=== PATIENT | male | born 1935 | race Caucasian/White ===

== ENCOUNTER 2021-10-02 12:36 | Inpatient (IN) | payer OTHER ==
[~2021-10-02] VITALS: Ht 157.5 cm; Wt 55.8 kg
[2021-10-02] MEDS ORDERED: VANCOMYCIN 1 G PREMIX 200 ML IV ONE (12:45)
[2021-10-02] MEDS ORDERED: AMIODARONE HCL 900 MG in DEXT 5% WATER 500 ML IV ONE (12:45)
[2021-10-02] MEDS ORDERED: PIPERACILLIN/TAZ 3.375G PREMIX 50 ML IV ONE (12:45)
[2021-10-02] MEDS ORDERED: AMIODARONE HCL 150 MG in DEXT 5% WATER 100 ML IV ONE (12:45)
[2021-10-02] MEDS ORDERED: DEXAMETHASONE 10 MG/ML VIAL IV ONE (12:45)
[2021-10-02] MEDS ORDERED: ALBUTEROL (0.083%) 2.5MG/3ML NEB HHN STA (12:47)
[2021-10-02] MEDS ORDERED: IPRATROPIUM BROMIDE (0.02%) 0.5MG/2.5ML NEB HHN STA (12:47)
[2021-10-02] MEDS ORDERED: SODIUM CHLORIDE 0.9% 250 ML IV ONE (13:00)
[2021-10-02 13:04] LABS: HEMATOCRIT. 33.8 % (42.0-52.0); HEMOGLOBIN. 11.7 g/dL (14.0-18.0); MEAN CORPUSCULAR HEMOGLOBIN 34.6 pg (28.0-32.0); MEAN CORPUSCULAR VOLUME 100.3 fL (80.0-94.0); MEAN PLATELET VOLUME 8.5 fl (7.4-10.4); PLATELET 293 x1000/uL (130-400); RED BLOOD CELL COUNT 3.37 mill/uL (4.7-6.1); RED CELL DISTRIBUTION WIDTH 13.8 % (11.6-14.6)
[2021-10-02 13:12] LABS: CHLORIDE 102 mEq/L (98-107)
[2021-10-02 13:22] LABS: INR 1.2; PROTHROMBIN TIME 13.1 sec (9.6-11.0)
[2021-10-02 13:41] LABS: NUCLEATED RED BLOOD CELLS 6 /100 WBC
[2021-10-02 13:42] LABS: PLATELET ESTIMATE NORMAL
[2021-10-02 14:31] LABS: BG BASE EXCESS -4.2 mmol/L (-2.0-2.0); BG CARBOXYHEMOGLOBIN 0.3 % (0.5-1.5); BG DEOXYHEMOGLOBIN 1.8 % (0.0-5.0); BG FRACTION INSPIRED OXYGEN 100; BG HCO3 ACT 17.8 mmol/L (22.0-26.0); BG METHEMOGLOBIN 0.1 % (0.0-1.5); BG OXYGEN SATURATION 98.2 % (92.0-98.5); BG OXYHEMOGLOBIN 97.8 % (94.0-97.0); BG PCO2 23.9 mmHg (35.0-45.0); BG PH 7.489 (7.350-7.450); BG PO2 134.6 mmHg (75.0-100.0); BG SAMPLE SITE RIGHT BRACHIAL; BG VENT MODE MASK - BIPAP
[2021-10-02] MEDS ORDERED: ENOXAPARIN 60MG/0.6ML SYR SUBCUT ONE (15:15)
[2021-10-02] MEDS: FUROSEMIDE 20MG/2ML VIAL IVP SCH (15:57)
[2021-10-02] MEDS: ASPIRIN 81MG TABLET PO SCH (15:57)
[2021-10-02] MEDS: ENOXAPARIN 60MG/0.6ML SYR SUBCUT SCH (15:58)
[2021-10-02] MEDS ORDERED: DEXTROSE 50% WATER 50ML SYRINGE IV PRN (16:00)
[2021-10-02] MEDS: FAMOTIDINE 20MG/2ML VIAL IV SCH (16:00)
[2021-10-02] MEDS ORDERED: ONDANSETRON HCL 4MG/2ML INJ IV PRN (16:00)
[2021-10-02] MEDS ORDERED: ACETAMINOPHEN 650MG SUPP PR PRN (16:00)
[2021-10-02] MEDS ORDERED: LORAZEPAM 0.5MG TABLET PO PRN (16:00)
[2021-10-02] MEDS ORDERED: IPRATROPIUM/ALBUTEROL 0.5-3(2.5)MG/3ML NEB NEB PRN (16:00)
[2021-10-02] MEDS: IPRATROPIUM/ALBUTEROL 0.5-3(2.5)MG/3ML NEB NEB SCH (16:00)
[2021-10-02] MEDS ORDERED: NA PHOS,M-B/NA PHOS,DI-BA ENEMA 118ML PR PRN (16:00)
[2021-10-02] MEDS: DEXAMETHASONE 10 MG/ML VIAL IV SCH (16:00)
[2021-10-02] MEDS ORDERED: DIGOXIN 500MCG/2ML AMP IV NR (16:30)
[2021-10-02 16:56] LABS: CLARITY URINE CLEAR (CLEAR); COLOR URINE DARK YELLOW (YELLOW); KETONES URINE TRACE (NEGATIVE); LEUKOCYTE ESTERASE URINE TRACE (NEGATIVE); NITRITE URINE NEGATIVE (NEGATIVE); OCCULT BLOOD URINE NEGATIVE (NEGATIVE); PROTEIN URINE 1+ (NEGATIVE); SPECIFIC GRAVITY URINE 1.021 (1.005-1.030)
[2021-10-02] MEDS: INSULIN LISPRO 100 UNITS/ML SUBCUT SCH ×2 (17:10→21:39)
[2021-10-02] MEDS: BLOOD SUGAR DIAGNOSTIC STRIP TEST SCH ×2 (17:10→21:39)
[2021-10-02] MEDS ORDERED: PIPERACILLIN/TAZOBACTAM 3.375 G in DEXTROSE 5% WATER 50 ML IV SCH (21:00)
[2021-10-02] MEDS ORDERED: DIGOXIN 250MCG TABLET PO NR (22:30)
[2021-10-02 23:11] LABS: CREATINE KINASE MB FRACTION 14.6 ng/mL (0.5-3.6)
[2021-10-03] VITALS (39 sets, daily range): BP systolic 97–149; BP diastolic 49–88
[2021-10-03] MEDS: IPRATROPIUM/ALBUTEROL 0.5-3(2.5)MG/3ML NEB NEB SCH ×5 (00:49→21:12)
[2021-10-03] MEDS: BLOOD SUGAR DIAGNOSTIC STRIP TEST SCH ×4 (06:28→21:49)
[2021-10-03] MEDS: AMIODARONE HCL 900 MG in DEXT 5% WATER 482 ML IV PRN ×2 (06:38→07:44)
[2021-10-03] MEDS: INSULIN LISPRO 100 UNITS/ML SUBCUT SCH ×4 (06:39→21:00)
[2021-10-03 07:29] LABS: BG BASE EXCESS -2.5 mmol/L (-2.0-2.0); BG CARBOXYHEMOGLOBIN 0.3 % (0.5-1.5); BG DEOXYHEMOGLOBIN 0.7 % (0.0-5.0); BG HCO3 ACT 19.9 mmol/L (22.0-26.0); BG METHEMOGLOBIN 0.1 % (0.0-1.5); BG OXYGEN SATURATION 99.3 % (92.0-98.5); BG OXYHEMOGLOBIN 98.9 % (94.0-97.0); BG PCO2 27.3 mmHg (35.0-45.0); BG SAMPLE SITE RIGHT RADIAL; BG TOTAL HEMOGLOBIN 11.4 g/dL (12.0-18.0); BG VENT MODE MASK - BIPAP
[2021-10-03 08:49] LABS: CREATINE KINASE MB FRACTION 10.4 ng/mL (0.5-3.6)
[2021-10-03] MEDS ORDERED: PIPERACILLIN/TAZOBACTAM 3.375 G in DEXTROSE 5% WATER 50 ML IV SCH (09:00)
[2021-10-03] MEDS ORDERED: AMIODARONE HCL 200 MG TABLET PO SCH ×2 (09:30→21:00)
[2021-10-03 09:35] LABS: HEMATOCRIT. 33.2 % (42.0-52.0); HEMOGLOBIN. 11.1 g/dL (14.0-18.0); MEAN CORPUSCULAR HEMOGLOBIN 31.8 pg (28.0-32.0); MEAN CORPUSCULAR VOLUME 95.1 fL (80.0-94.0); MEAN PLATELET VOLUME 9.3 fl (7.4-10.4); PLATELET 248 x1000/uL (130-400); RED CELL DISTRIBUTION WIDTH 14.1 % (11.6-14.6)
[2021-10-03] MEDS ORDERED: NALOXONE HCL 0.4MG/ML VIAL IV PRN (09:45)
[2021-10-03] MEDS: ASPIRIN 81MG TABLET PO SCH (10:08)
[2021-10-03] MEDS: FAMOTIDINE 20MG/2ML VIAL IV SCH (10:08)
[2021-10-03] MEDS: FUROSEMIDE 20MG/2ML VIAL IVP SCH (10:13)
[2021-10-03] MEDS: DEXAMETHASONE 10 MG/ML VIAL IV SCH (10:13)
[2021-10-03 10:58] LABS: NUCLEATED RED BLOOD CELLS 1 /100 WBC; PLATELET ESTIMATE NORMAL
[2021-10-03] MEDS: DILTIAZEM HCL 90MG TABLET PO SCH ×3 (12:59→23:42)
[2021-10-03] MEDS: VANCOMYCIN 500 MG PREMIX 100 ML IV SCH (13:46)
[2021-10-03] MEDS: ENOXAPARIN 60MG/0.6ML SYR SUBCUT SCH (15:24)
[2021-10-03] MEDS: PIPERACILLIN/TAZOBACTAM 3.375 G in DEXTROSE 5% WATER 50 ML IV SCH ×2 (16:36→22:00)
[2021-10-04] VITALS (66 sets, daily range): BP systolic 96–160; BP diastolic 50–108
[2021-10-04] MEDS: IPRATROPIUM/ALBUTEROL 0.5-3(2.5)MG/3ML NEB NEB SCH ×2 (02:27→21:41)
[2021-10-04] MEDS: DILTIAZEM HCL 90MG TABLET PO SCH ×3 (06:00→17:52)
[2021-10-04] MEDS: BLOOD SUGAR DIAGNOSTIC STRIP TEST SCH ×4 (06:32→21:00)
[2021-10-04] MEDS: PIPERACILLIN/TAZOBACTAM 3.375 G in DEXTROSE 5% WATER 50 ML IV SCH ×3 (06:34→22:41)
[2021-10-04] MEDS: INSULIN LISPRO 100 UNITS/ML SUBCUT SCH ×4 (06:35→21:00)
[2021-10-04 06:36] LABS: HEMATOCRIT. 32.2 % (42.0-52.0); HEMOGLOBIN. 10.7 g/dL (14.0-18.0); MEAN CORPUSCULAR HEMOGLOBIN 31.5 pg (28.0-32.0); MEAN CORPUSCULAR VOLUME 94.7 fL (80.0-94.0); MEAN PLATELET VOLUME 9.3 fl (7.4-10.4); PLATELET 236 x1000/uL (130-400); RED CELL DISTRIBUTION WIDTH 14.1 % (11.6-14.6)
[2021-10-04] MEDS: FAMOTIDINE 20MG/2ML VIAL IV SCH (08:09)
[2021-10-04] MEDS: DEXAMETHASONE 10 MG/ML VIAL IV SCH (08:09)
[2021-10-04] MEDS: FUROSEMIDE 20MG/2ML VIAL IVP SCH (08:10)
[2021-10-04] MEDS: ASPIRIN 81MG TABLET PO SCH (08:10)
[2021-10-04] MEDS ORDERED: LIDOCAINE HCL 1% 10 MG/ML 10ML VIAL ONE (08:18)
[2021-10-04 08:51] LABS: BG BASE EXCESS 0.9 mmol/L (-2.0-2.0); BG CARBOXYHEMOGLOBIN 0.3 % (0.5-1.5); BG DEOXYHEMOGLOBIN 5.8 % (0.0-5.0); BG FRACTION INSPIRED OXYGEN 40; BG HCO3 ACT 22.7 mmol/L (22.0-26.0); BG METHEMOGLOBIN 0.2 % (0.0-1.5); BG OXYGEN SATURATION 94.2 % (92.0-98.5); BG OXYHEMOGLOBIN 93.7 % (94.0-97.0); BG PCO2 27.5 mmHg (35.0-45.0); BG PH 7.535 (7.350-7.450); BG PO2 69.4 mmHg (75.0-100.0); BG SAMPLE SITE RIGHT RADIAL; BG TOTAL HEMOGLOBIN 10.8 g/dL (12.0-18.0); BG VENT MODE MASK - BIPAP
[2021-10-04] MEDS: VANCOMYCIN 500 MG PREMIX 100 ML IV SCH (13:31)
[2021-10-04] MEDS: ENOXAPARIN 60MG/0.6ML SYR SUBCUT SCH (14:51)
[2021-10-04 17:51] LABS: NUCLEATED RED BLOOD CELLS 5 /100 WBC; PLATELET ESTIMATE NORMAL
[2021-10-05] VITALS (66 sets, daily range): BP systolic 103–174; BP diastolic 46–127
[2021-10-05] MEDS: DILTIAZEM HCL 90MG TABLET PO SCH ×4 (01:01→17:44)
[2021-10-05] MEDS: IPRATROPIUM/ALBUTEROL 0.5-3(2.5)MG/3ML NEB NEB SCH ×4 (02:03→21:11)
[2021-10-05] MEDS: INSULIN LISPRO 100 UNITS/ML SUBCUT SCH ×4 (06:35→22:12)
[2021-10-05] MEDS: BLOOD SUGAR DIAGNOSTIC STRIP TEST SCH ×4 (06:35→22:00)
[2021-10-05] MEDS: PIPERACILLIN/TAZOBACTAM 3.375 G in DEXTROSE 5% WATER 50 ML IV SCH ×3 (06:47→21:59)
[2021-10-05 08:17] LABS: BG BASE EXCESS 4.1 mmol/L (-2.0-2.0); BG CARBOXYHEMOGLOBIN 0.3 % (0.5-1.5); BG DEOXYHEMOGLOBIN 5.3 % (0.0-5.0); BG FRACTION INSPIRED OXYGEN 40; BG HCO3 ACT 25.4 mmol/L (22.0-26.0); BG METHEMOGLOBIN 0.3 % (0.0-1.5); BG OXYGEN SATURATION 94.7 % (92.0-98.5); BG OXYHEMOGLOBIN 94.1 % (94.0-97.0); BG PCO2 28.2 mmHg (35.0-45.0); BG PH 7.573 (7.350-7.450); BG PO2 69.9 mmHg (75.0-100.0); BG SAMPLE SITE RIGHT RADIAL; BG TOTAL HEMOGLOBIN 12.3 g/dL (12.0-18.0); BG TOTAL RESPIRATORY RATE 32 b/min; BG VENT MODE MASK - BIPAP
[2021-10-05] MEDS: DEXAMETHASONE 10 MG/ML VIAL IV SCH (08:33)
[2021-10-05] MEDS: FAMOTIDINE 20MG/2ML VIAL IV SCH (08:33)
[2021-10-05] MEDS: ASPIRIN 81MG TABLET PO SCH (08:33)
[2021-10-05] MEDS: FUROSEMIDE 20MG/2ML VIAL IVP SCH (08:34)
[2021-10-05 08:36] LABS: HEMATOCRIT. 36.2 % (42.0-52.0); HEMOGLOBIN. 11.9 g/dL (14.0-18.0); MEAN CORPUSCULAR HEMOGLOBIN 29.7 pg (28.0-32.0); MEAN CORPUSCULAR VOLUME 90.9 fL (80.0-94.0); MEAN PLATELET VOLUME 9.1 fl (7.4-10.4); PLATELET 206 x1000/uL (130-400); RED BLOOD CELL COUNT 3.99 mill/uL (4.7-6.1); RED CELL DISTRIBUTION WIDTH 14.3 % (11.6-14.6)
[2021-10-05] MEDS ORDERED: POTASSIUM CHLORIDE INJ 40 MEQ in DEXT 5% WATER 250 ML IV ONE ×2 (08:45→09:00)
[2021-10-05 09:03] LABS: NUCLEATED RED BLOOD CELLS 2 /100 WBC
[2021-10-05 09:05] LABS: PLATELET ESTIMATE NORMAL
[2021-10-05] MEDS: LORAZEPAM 2MG/ML CPJ IV PRN ×2 (09:33→18:01)
[2021-10-05] MEDS: KCL 20MEQ/100ML PREMIX 100 ML IV SCH ×2 (10:15→12:31)
[2021-10-05] MEDS: VANCOMYCIN 750 MG PREMIX 150 ML IV SCH (12:31)
[2021-10-05] MEDS ORDERED: LORAZEPAM 2MG/ML CPJ IV NR (13:11)
[2021-10-05] MEDS: ENOXAPARIN 60MG/0.6ML SYR SUBCUT SCH (14:53)
[2021-10-06] VITALS (37 sets, daily range): BP systolic 108–164; BP diastolic 59–103
[2021-10-06] MEDS: ACETAMINOPHEN 325MG TABLET PO PRN (01:53)
[2021-10-06] MEDS: DILTIAZEM HCL 90MG TABLET PO SCH ×4 (01:53→18:40)
[2021-10-06] MEDS: IPRATROPIUM/ALBUTEROL 0.5-3(2.5)MG/3ML NEB NEB SCH ×3 (02:00→13:53)
[2021-10-06] MEDS: GUAIFENESIN 200MG/10ML SUGAR FREE UDC PO PRN (02:30)
[2021-10-06] MEDS: DIPHENHYDRAMINE 50MG/ML VIAL IV PRN ×2 (02:30→21:42)
[2021-10-06] MEDS: MAGNESIUM/ALUMINUM HYDROXIDE/SIMETHICONE 30ML UDC PO PRN (02:31)
[2021-10-06] MEDS: HYDROCODONE/ACETAMINOPHEN 5/325MG TABLET PO PRN ×3 (02:32→21:43)
[2021-10-06] MEDS: BLOOD SUGAR DIAGNOSTIC STRIP TEST SCH ×4 (06:18→21:48)
[2021-10-06] MEDS: INSULIN LISPRO 100 UNITS/ML SUBCUT SCH ×4 (06:18→21:00)
[2021-10-06] MEDS: PIPERACILLIN/TAZOBACTAM 3.375 G in DEXTROSE 5% WATER 50 ML IV SCH ×3 (06:19→21:42)
[2021-10-06] MEDS: VANCOMYCIN 750 MG PREMIX 150 ML IV SCH (06:21)
[2021-10-06 06:26] LABS: HEMATOCRIT. 34.1 % (42.0-52.0); HEMOGLOBIN. 12.1 g/dL (14.0-18.0); MEAN CORPUSCULAR HEMOGLOBIN 36.2 pg (28.0-32.0); MEAN CORPUSCULAR VOLUME 101.7 fL (80.0-94.0); PLATELET 188 x1000/uL (130-400); RED BLOOD CELL COUNT 3.35 mill/uL (4.7-6.1); RED CELL DISTRIBUTION WIDTH 14.3 % (11.6-14.6)
[2021-10-06 06:33] LABS: CHLORIDE 113 mEq/L (98-107)
[2021-10-06 08:10] LABS: NUCLEATED RED BLOOD CELLS 4 /100 WBC
[2021-10-06 08:11] LABS: PLATELET ESTIMATE NORMAL
[2021-10-06 08:45] LABS: BG BASE EXCESS 3.8 mmol/L (-2.0-2.0); BG CARBOXYHEMOGLOBIN 0.3 % (0.5-1.5); BG DEOXYHEMOGLOBIN 2.8 % (0.0-5.0); BG FRACTION INSPIRED OXYGEN 40; BG HCO3 ACT 26.3 mmol/L (22.0-26.0); BG METHEMOGLOBIN 0.3 % (0.0-1.5); BG OXYGEN SATURATION 97.2 % (92.0-98.5); BG OXYHEMOGLOBIN 96.6 % (94.0-97.0); BG PO2 92.2 mmHg (75.0-100.0); BG SAMPLE SITE RIGHT BRACHIAL; BG TOTAL RESPIRATORY RATE 19 b/min; BG VENT MODE MASK - BIPAP
[2021-10-06] MEDS: DEXAMETHASONE 10 MG/ML VIAL IV SCH (08:50)
[2021-10-06] MEDS: FUROSEMIDE 20MG/2ML VIAL IVP SCH (08:51)
[2021-10-06] MEDS: FAMOTIDINE 20MG/2ML VIAL IV SCH (08:51)
[2021-10-06] MEDS: ASPIRIN 81MG TABLET PO SCH (08:51)
[2021-10-06] MEDS: LORAZEPAM 2MG/ML CPJ IV PRN (11:08)
[2021-10-06] MEDS: ENOXAPARIN 60MG/0.6ML SYR SUBCUT SCH (15:19)
[2021-10-07] VITALS (26 sets, daily range): BP systolic 99–160; BP diastolic 59–95
[2021-10-07] MEDS: DILTIAZEM HCL 90MG TABLET PO SCH ×5 (01:01→23:50)
[2021-10-07] MEDS: IPRATROPIUM/ALBUTEROL 0.5-3(2.5)MG/3ML NEB NEB SCH ×4 (01:40→20:44)
[2021-10-07] MEDS: MAGNESIUM/ALUMINUM HYDROXIDE/SIMETHICONE 30ML UDC PO PRN (03:13)
[2021-10-07] MEDS: LORAZEPAM 2MG/ML CPJ IV PRN ×2 (03:13→14:37)
[2021-10-07 06:03] LABS: HEMATOCRIT. 35.4 % (42.0-52.0); HEMOGLOBIN. 12.7 g/dL (14.0-18.0); MEAN CORPUSCULAR HEMOGLOBIN 37.8 pg (28.0-32.0); MEAN CORPUSCULAR VOLUME 104.8 fL (80.0-94.0); MEAN PLATELET VOLUME 10.3 fl (7.4-10.4); PLATELET 199 x1000/uL (130-400); RED BLOOD CELL COUNT 3.37 mill/uL (4.7-6.1); RED CELL DISTRIBUTION WIDTH 14.2 % (11.6-14.6)
[2021-10-07] MEDS: HYDROCODONE/ACETAMINOPHEN 5/325MG TABLET PO PRN (06:10)
[2021-10-07] MEDS: BLOOD SUGAR DIAGNOSTIC STRIP TEST SCH ×3 (06:10→17:09)
[2021-10-07] MEDS: INSULIN LISPRO 100 UNITS/ML SUBCUT SCH ×3 (06:11→17:09)
[2021-10-07] MEDS: PIPERACILLIN/TAZOBACTAM 3.375 G in DEXTROSE 5% WATER 50 ML IV SCH ×3 (06:11→22:33)
[2021-10-07 09:35] LABS: BG BASE EXCESS 2.1 mmol/L (-2.0-2.0); BG DEOXYHEMOGLOBIN 2.8 % (0.0-5.0); BG FRACTION INSPIRED OXYGEN 40; BG METHEMOGLOBIN 0.1 % (0.0-1.5); BG OXYGEN SATURATION 97.2 % (92.0-98.5); BG OXYHEMOGLOBIN 96.1 % (94.0-97.0); BG PCO2 33.8 mmHg (35.0-45.0); BG PH 7.487 (7.350-7.450); BG PO2 91.6 mmHg (75.0-100.0); BG SAMPLE SITE RIGHT RADIAL; BG TOTAL HEMOGLOBIN 13.5 g/dL (12.0-18.0); BG VENT MODE MASK - BIPAP
[2021-10-07] MEDS: FUROSEMIDE 20MG/2ML VIAL IVP SCH (09:57)
[2021-10-07] MEDS: FAMOTIDINE 20MG/2ML VIAL IV SCH (09:58)
[2021-10-07] MEDS: DEXAMETHASONE 10 MG/ML VIAL IV SCH (09:58)
[2021-10-07] MEDS: DOCUSATE SODIUM 100MG CAPSULE PO PRN (09:58)
[2021-10-07] MEDS: ASPIRIN 81MG TABLET PO SCH (09:58)
[2021-10-07] MEDS: ENOXAPARIN 60MG/0.6ML SYR SUBCUT SCH (14:38)
[2021-10-07 15:30] LABS: PLATELET ESTIMATE NORMAL
[2021-10-07] MEDS: ACETAMINOPHEN 325MG TABLET PO PRN (23:50)
[2021-10-08] VITALS (38 sets, daily range): BP systolic 65–170; BP diastolic 15–131
[2021-10-08] MEDS: IPRATROPIUM/ALBUTEROL 0.5-3(2.5)MG/3ML NEB NEB SCH ×4 (02:18→20:50)
[2021-10-08 04:45] LABS: HEMATOCRIT. 38.5 % (42.0-52.0); HEMOGLOBIN. 13.1 g/dL (14.0-18.0); MEAN CORPUSCULAR VOLUME 102.7 fL (80.0-94.0); PLATELET 229 x1000/uL (130-400); RED BLOOD CELL COUNT 3.75 mill/uL (4.7-6.1); RED CELL DISTRIBUTION WIDTH 14.8 % (11.6-14.6)
[2021-10-08] MEDS: INSULIN LISPRO 100 UNITS/ML SUBCUT SCH ×4 (06:00→17:49)
[2021-10-08] MEDS: BLOOD SUGAR DIAGNOSTIC STRIP TEST SCH ×4 (06:35→17:42)
[2021-10-08] MEDS: DILTIAZEM HCL 90MG TABLET PO SCH ×4 (06:38→23:03)
[2021-10-08 08:38] LABS: BG BASE EXCESS 3.3 mmol/L (-2.0-2.0); BG CARBOXYHEMOGLOBIN 0.7 % (0.5-1.5); BG DEOXYHEMOGLOBIN 3.9 % (0.0-5.0); BG FRACTION INSPIRED OXYGEN 40; BG HCO3 ACT 25.9 mmol/L (22.0-26.0); BG METHEMOGLOBIN 0.2 % (0.0-1.5); BG OXYGEN SATURATION 96.1 % (92.0-98.5); BG OXYHEMOGLOBIN 95.2 % (94.0-97.0); BG PCO2 33.6 mmHg (35.0-45.0); BG PH 7.505 (7.350-7.450); BG SAMPLE SITE RIGHT RADIAL; BG TOTAL HEMOGLOBIN 14.3 g/dL (12.0-18.0); BG VENT MODE MASK - BIPAP
[2021-10-08] MEDS: GUAIFENESIN 200MG/10ML SUGAR FREE UDC PO PRN (09:39)
[2021-10-08] MEDS: DOCUSATE SODIUM 100MG CAPSULE PO PRN (09:39)
[2021-10-08] MEDS: DIPHENHYDRAMINE 50MG/ML VIAL IV PRN ×2 (09:39→14:11)
[2021-10-08] MEDS: ASPIRIN 81MG TABLET PO SCH (09:39)
[2021-10-08] MEDS: FAMOTIDINE 20MG/2ML VIAL IV SCH (09:39)
[2021-10-08] MEDS: FUROSEMIDE 20MG/2ML VIAL IVP SCH (09:39)
[2021-10-08] MEDS: DEXAMETHASONE 4MG/ML 1ML VIAL IV SCH (09:39)
[2021-10-08 10:15] LABS: PLATELET ESTIMATE NORMAL
[2021-10-08] MEDS: ENOXAPARIN 60MG/0.6ML SYR SUBCUT SCH (14:11)
[2021-10-08] MEDS: LORAZEPAM 2MG/ML CPJ IV PRN (17:49)
[2021-10-08] MEDS: CLONIDINE 0.1MG TABLET PO PRN (21:52)
[2021-10-09] VITALS (58 sets, daily range): BP systolic 96–176; BP diastolic 36–113
[2021-10-09] MEDS: IPRATROPIUM/ALBUTEROL 0.5-3(2.5)MG/3ML NEB NEB SCH ×4 (00:20→21:26)
[2021-10-09] MEDS: BLOOD SUGAR DIAGNOSTIC STRIP TEST SCH ×4 (00:43→17:39)
[2021-10-09] MEDS: HYDROCODONE/ACETAMINOPHEN 5/325MG TABLET PO PRN (02:30)
[2021-10-09] MEDS: DILTIAZEM HCL 90MG TABLET PO SCH ×3 (05:44→17:40)
[2021-10-09 05:52] LABS: HEMOGLOBIN. 12.2 g/dL (14.0-18.0); MEAN CORPUSCULAR VOLUME 103.1 fL (80.0-94.0); MEAN PLATELET VOLUME 10.3 fl (7.4-10.4); PLATELET 218 x1000/uL (130-400); RED BLOOD CELL COUNT 3.49 mill/uL (4.7-6.1); RED CELL DISTRIBUTION WIDTH 14.8 % (11.6-14.6)
[2021-10-09] MEDS: INSULIN LISPRO 100 UNITS/ML SUBCUT SCH ×4 (05:55→17:39)
[2021-10-09 07:33] LABS: PLATELET ESTIMATE NORMAL
[2021-10-09] MEDS: FAMOTIDINE 20MG/2ML VIAL IV SCH (08:33)
[2021-10-09] MEDS: ASPIRIN 81MG TABLET PO SCH (08:33)
[2021-10-09] MEDS: DEXAMETHASONE 4MG/ML 1ML VIAL IV SCH (08:33)
[2021-10-09 09:59] LABS: BG BASE EXCESS 3.8 mmol/L (-2.0-2.0); BG CARBOXYHEMOGLOBIN 0.3 % (0.5-1.5); BG DEOXYHEMOGLOBIN 5.6 % (0.0-5.0); BG FRACTION INSPIRED OXYGEN 50; BG HCO3 ACT 26.4 mmol/L (22.0-26.0); BG METHEMOGLOBIN 0.3 % (0.0-1.5); BG OXYGEN SATURATION 94.4 % (92.0-98.5); BG OXYHEMOGLOBIN 93.8 % (94.0-97.0); BG PCO2 33.5 mmHg (35.0-45.0); BG PH 7.514 (7.350-7.450); BG PO2 70.3 mmHg (75.0-100.0); BG SAMPLE SITE RIGHT BRACHIAL; BG TOTAL HEMOGLOBIN 13.4 g/dL (12.0-18.0); BG VENT MODE HIGH FLOW
[2021-10-09] MEDS: ENOXAPARIN 60MG/0.6ML SYR SUBCUT SCH (15:51)
[2021-10-09] MEDS: LORAZEPAM 2MG/ML CPJ IV PRN (15:55)
[2021-10-10] VITALS (35 sets, daily range): BP systolic 126–173; BP diastolic 51–96
[2021-10-10] MEDS: DILTIAZEM HCL 90MG TABLET PO SCH ×5 (00:41→23:43)
[2021-10-10] MEDS: BLOOD SUGAR DIAGNOSTIC STRIP TEST SCH ×5 (00:42→23:45)
[2021-10-10] MEDS: IPRATROPIUM/ALBUTEROL 0.5-3(2.5)MG/3ML NEB NEB SCH ×4 (00:55→20:50)
[2021-10-10] MEDS: INSULIN LISPRO 100 UNITS/ML SUBCUT SCH ×5 (05:26→23:43)
[2021-10-10 06:08] LABS: HEMATOCRIT. 41.5 % (42.0-52.0); HEMOGLOBIN. 13.6 g/dL (14.0-18.0); MEAN CORPUSCULAR HEMOGLOBIN 32.7 pg (28.0-32.0); MEAN PLATELET VOLUME 10.3 fl (7.4-10.4); PLATELET 250 x1000/uL (130-400); RED BLOOD CELL COUNT 4.15 mill/uL (4.7-6.1); RED CELL DISTRIBUTION WIDTH 15.6 % (11.6-14.6)
[2021-10-10 08:14] LABS: PLATELET ESTIMATE NORMAL
[2021-10-10] MEDS: FAMOTIDINE 20MG/2ML VIAL IV SCH (09:27)
[2021-10-10] MEDS: DEXAMETHASONE 4MG/ML 1ML VIAL IV SCH (09:27)
[2021-10-10] MEDS: ASPIRIN 81MG TABLET PO SCH (09:27)
[2021-10-10] MEDS: GUAIFENESIN 200MG/10ML SUGAR FREE UDC PO PRN (09:27)
[2021-10-10] MEDS: CLONIDINE 0.1MG TABLET PO PRN (09:28)
[2021-10-10] MEDS: HYDROCODONE/ACETAMINOPHEN 5/325MG TABLET PO PRN (10:54)
[2021-10-10 13:20] LABS: BG BASE EXCESS 1.4 mmol/L (-2.0-2.0); BG CARBOXYHEMOGLOBIN 0.6 % (0.5-1.5); BG DEOXYHEMOGLOBIN 2.3 % (0.0-5.0); BG FRACTION INSPIRED OXYGEN 55; BG HCO3 ACT 24.6 mmol/L (22.0-26.0); BG METHEMOGLOBIN 0.2 % (0.0-1.5); BG OXYGEN SATURATION 97.7 % (92.0-98.5); BG OXYHEMOGLOBIN 96.9 % (94.0-97.0); BG PCO2 34.3 mmHg (35.0-45.0); BG PH 7.473 (7.350-7.450); BG PO2 104.5 mmHg (75.0-100.0); BG SAMPLE SITE RIGHT BRACHIAL; BG TOTAL HEMOGLOBIN 13.6 g/dL (12.0-18.0); BG VENT MODE HIGH FLOW
[2021-10-10] MEDS: ENOXAPARIN 60MG/0.6ML SYR SUBCUT SCH (15:16)
[2021-10-10] MEDS: ACETAMINOPHEN 325MG TABLET PO PRN (17:32)
[2021-10-11] VITALS (54 sets, daily range): BP systolic 97–201; BP diastolic 43–136
[2021-10-11] MEDS: IPRATROPIUM/ALBUTEROL 0.5-3(2.5)MG/3ML NEB NEB SCH ×5 (00:58→20:34)
[2021-10-11] MEDS: CLONIDINE 0.1MG TABLET PO PRN (04:13)
[2021-10-11] MEDS: DILTIAZEM HCL 90MG TABLET PO SCH (05:33)
[2021-10-11] MEDS: BLOOD SUGAR DIAGNOSTIC STRIP TEST SCH ×3 (05:35→17:12)
[2021-10-11] MEDS: INSULIN LISPRO 100 UNITS/ML SUBCUT SCH ×3 (05:35→17:12)
[2021-10-11 05:56] LABS: HEMATOCRIT. 40.1 % (42.0-52.0); HEMOGLOBIN. 13.2 g/dL (14.0-18.0); MEAN CORPUSCULAR HEMOGLOBIN 32.5 pg (28.0-32.0); MEAN CORPUSCULAR VOLUME 98.7 fL (80.0-94.0); MEAN PLATELET VOLUME 10.9 fl (7.4-10.4); PLATELET 266 x1000/uL (130-400); RED BLOOD CELL COUNT 4.06 mill/uL (4.7-6.1); RED CELL DISTRIBUTION WIDTH 14.8 % (11.6-14.6)
[2021-10-11] MEDS: FAMOTIDINE 20MG/2ML VIAL IV SCH (08:43)
[2021-10-11] MEDS: DEXAMETHASONE 4MG/ML 1ML VIAL IV SCH (08:43)
[2021-10-11] MEDS: ASPIRIN 81MG TABLET PO SCH (08:43)
[2021-10-11] MEDS: HYDROCODONE/ACETAMINOPHEN 5/325MG TABLET PO PRN ×4 (08:52→22:09)
[2021-10-11] MEDS: DIPHENHYDRAMINE 50MG/ML VIAL IV PRN ×2 (09:12→23:02)
[2021-10-11 12:28] LABS: BG BASE EXCESS 0.2 mmol/L (-2.0-2.0); BG CARBOXYHEMOGLOBIN 0.3 % (0.5-1.5); BG FRACTION INSPIRED OXYGEN 45; BG HCO3 ACT 23.8 mmol/L (22.0-26.0); BG METHEMOGLOBIN 0.1 % (0.0-1.5); BG OXYHEMOGLOBIN 97.6 % (94.0-97.0); BG PCO2 35.3 mmHg (35.0-45.0); BG PH 7.447 (7.350-7.450); BG PO2 112.4 mmHg (75.0-100.0); BG SAMPLE SITE RIGHT BRACHIAL; BG TOTAL HEMOGLOBIN 13.1 g/dL (12.0-18.0); BG VENT MODE HIGH FLOW
[2021-10-11] MEDS: DILTIAZEM HCL 60MG TABLET PO SCH ×2 (14:01→22:10)
[2021-10-11] MEDS: ENOXAPARIN 60MG/0.6ML SYR SUBCUT SCH (14:01)
[2021-10-11 14:38] LABS: PLATELET ESTIMATE NORMAL
[2021-10-12] VITALS (46 sets, daily range): BP systolic 97–171; BP diastolic 35–116
[2021-10-12 00:10] LABS: HEPATITIS B SURFACE ANTIGEN NEGATIVE
[2021-10-12] MEDS: BLOOD SUGAR DIAGNOSTIC STRIP TEST SCH ×4 (00:39→18:06)
[2021-10-12] MEDS: HYDROCODONE/ACETAMINOPHEN 5/325MG TABLET PO PRN (05:01)
[2021-10-12] MEDS: DILTIAZEM HCL 60MG TABLET PO SCH ×3 (05:02→22:39)
[2021-10-12] MEDS: INSULIN LISPRO 100 UNITS/ML SUBCUT SCH ×4 (06:00→18:00)
[2021-10-12 06:57] LABS: HEMATOCRIT. 36.4 % (42.0-52.0); HEMOGLOBIN. 12.1 g/dL (14.0-18.0); MEAN CORPUSCULAR HEMOGLOBIN 33.7 pg (28.0-32.0); MEAN CORPUSCULAR VOLUME 100.9 fL (80.0-94.0); MEAN PLATELET VOLUME 10.5 fl (7.4-10.4); PLATELET 270 x1000/uL (130-400); RED BLOOD CELL COUNT 3.61 mill/uL (4.7-6.1); RED CELL DISTRIBUTION WIDTH 14.7 % (11.6-14.6)
[2021-10-12] MEDS: DEXAMETHASONE 4MG/ML 1ML VIAL IV SCH (08:32)
[2021-10-12] MEDS: FAMOTIDINE 20MG/2ML VIAL IV SCH (08:32)
[2021-10-12] MEDS ORDERED: LEVETIRACETAM 250 MG in SODIUM CHLORIDE 0.9% 100 ML IV SCH (10:15)
[2021-10-12] MEDS ORDERED: NICARDIPINE 100 MG in SODIUM CHLORIDE 0.9% 60 ML IV PRN (11:00)
[2021-10-12 11:07] LABS: PLATELET ESTIMATE NORMAL
[2021-10-12] MEDS: MORPHINE SULFATE 2 MG/ML CPJ (NOT FOR IM USE) IV PRN ×2 (11:40→18:06)
[2021-10-12] MEDS: LEVETIRACETAM 500MG PREMIX 100 ML IV SCH ×2 (11:41→22:39)
[2021-10-12] MEDS ORDERED: LEVETIRACETAM 500MG PREMIX 100 ML IV SCH (12:00)
[2021-10-12] MEDS: IPRATROPIUM/ALBUTEROL 0.5-3(2.5)MG/3ML NEB NEB SCH ×2 (13:57→20:30)
[2021-10-12 17:47] LABS: PROTHROMBIN TIME 10.8 sec (9.6-11.0)
[2021-10-13] VITALS (43 sets, daily range): BP systolic 44–179; BP diastolic 22–120
[2021-10-13] MEDS: BLOOD SUGAR DIAGNOSTIC STRIP TEST SCH ×4 (00:41→17:20)
[2021-10-13] MEDS: IPRATROPIUM/ALBUTEROL 0.5-3(2.5)MG/3ML NEB NEB SCH ×3 (02:34→12:58)
[2021-10-13] MEDS: MORPHINE SULFATE 2 MG/ML CPJ (NOT FOR IM USE) IV PRN (03:46)
[2021-10-13 05:59] LABS: HEMATOCRIT. 37.7 % (42.0-52.0); HEMOGLOBIN. 12.2 g/dL (14.0-18.0); MEAN CORPUSCULAR HEMOGLOBIN 31.8 pg (28.0-32.0); MEAN CORPUSCULAR VOLUME 98.6 fL (80.0-94.0); MEAN PLATELET VOLUME 10.6 fl (7.4-10.4); PLATELET 275 x1000/uL (130-400); RED BLOOD CELL COUNT 3.82 mill/uL (4.7-6.1)
[2021-10-13] MEDS: INSULIN LISPRO 100 UNITS/ML SUBCUT SCH ×4 (06:00→17:21)
[2021-10-13 06:05] LABS: CHLORIDE 115 mEq/L (98-107)
[2021-10-13] MEDS: DILTIAZEM HCL 60MG TABLET PO SCH (06:28)
[2021-10-13 07:35] LABS: PLATELET ESTIMATE NORMAL
[2021-10-13] MEDS: LEVETIRACETAM 500MG PREMIX 100 ML IV SCH ×2 (08:26→21:43)
[2021-10-13] MEDS: FAMOTIDINE 20MG/2ML VIAL IV SCH (08:27)
[2021-10-13] MEDS: DEXAMETHASONE 4MG/ML 1ML VIAL IV SCH (08:27)
[2021-10-13] MEDS: DILTIAZEM HCL 90MG TABLET PO SCH ×2 (14:29→21:43)
[2021-10-14] VITALS: BP 145/87
[2021-10-14] MEDS: BLOOD SUGAR DIAGNOSTIC STRIP TEST SCH ×4 (00:22→17:12)
[2021-10-14 04:20] VITALS: BP 116/76
[2021-10-14] MEDS: INSULIN LISPRO 100 UNITS/ML SUBCUT SCH ×4 (06:00→17:12)
[2021-10-14] MEDS: DILTIAZEM HCL 90MG TABLET PO SCH (06:25)
[2021-10-14 07:38] LABS: HEMATOCRIT. 38.5 % (42.0-52.0); HEMOGLOBIN. 12.7 g/dL (14.0-18.0); MEAN CORPUSCULAR HEMOGLOBIN 32.2 pg (28.0-32.0); MEAN CORPUSCULAR VOLUME 97.6 fL (80.0-94.0); MEAN PLATELET VOLUME 10.8 fl (7.4-10.4); PLATELET 231 x1000/uL (130-400); RED BLOOD CELL COUNT 3.95 mill/uL (4.7-6.1); RED CELL DISTRIBUTION WIDTH 14.6 % (11.6-14.6)
[2021-10-14 08:00] VITALS: BP 122/66
[2021-10-14 08:06] LABS: CHLORIDE 119 mEq/L (98-107)
[2021-10-14] MEDS: DEXAMETHASONE 4MG/ML 1ML VIAL IV SCH (08:18)
[2021-10-14] MEDS: FAMOTIDINE 20MG/2ML VIAL IV SCH (08:18)
[2021-10-14] MEDS: LEVETIRACETAM 500MG PREMIX 100 ML IV SCH ×2 (08:18→21:23)
[2021-10-14 11:19] LABS: BG BASE EXCESS -2.1 mmol/L (-2.0-2.0); BG CARBOXYHEMOGLOBIN 0.6 % (0.5-1.5); BG DEOXYHEMOGLOBIN 6.4 % (0.0-5.0); BG FRACTION INSPIRED OXYGEN 28; BG HCO3 ACT 20.6 mmol/L (22.0-26.0); BG METHEMOGLOBIN 0.1 % (0.0-1.5); BG OXYGEN SATURATION 93.6 % (92.0-98.5); BG OXYHEMOGLOBIN 92.9 % (94.0-97.0); BG PCO2 29.2 mmHg (35.0-45.0); BG PH 7.466 (7.350-7.450); BG PO2 64.4 mmHg (75.0-100.0); BG SAMPLE SITE LEFT BRACHIAL; BG TOTAL HEMOGLOBIN 12.2 g/dL (12.0-18.0); BG VENT MODE NASAL CANNULA
[2021-10-14 12:00] VITALS: BP 118/66
[2021-10-14] MEDS: DILTIAZEM HCL 60MG TABLET PO SCH ×2 (13:06→21:24)
[2021-10-14 13:19] LABS: PLATELET ESTIMATE NORMAL
[2021-10-14 16:00] VITALS: BP 118/61
[2021-10-14 20:00] VITALS: BP 116/65
[2021-10-15] VITALS: BP 96/60
[2021-10-15] MEDS: DIPHENHYDRAMINE 50MG/ML VIAL IV PRN (02:30)
[2021-10-15 04:00] VITALS: BP 146/78
[2021-10-15] MEDS: DILTIAZEM HCL 60MG TABLET PO SCH (05:57)
[2021-10-15] MEDS: INSULIN LISPRO 100 UNITS/ML SUBCUT SCH ×4 (06:00→18:00)
[2021-10-15] MEDS: BLOOD SUGAR DIAGNOSTIC STRIP TEST SCH ×4 (06:00→18:00)
[2021-10-15 08:00] VITALS: BP 120/66
[2021-10-15] MEDS: LEVETIRACETAM 500MG PREMIX 100 ML IV SCH ×2 (08:22→21:36)
[2021-10-15] MEDS: DEXAMETHASONE 4MG/ML 1ML VIAL IV SCH (08:23)
[2021-10-15] MEDS: ACETAMINOPHEN 325MG TABLET PO PRN (08:23)
[2021-10-15 12:00] VITALS: BP 126/68
[2021-10-15] MEDS: LORAZEPAM 2MG/ML CPJ IV PRN (12:52)
[2021-10-15] MEDS: DILTIAZEM HCL 90MG TABLET PO SCH ×2 (14:00→21:38)
[2021-10-15 16:00] VITALS: BP 121/70
[2021-10-15] MEDS: IPRATROPIUM/ALBUTEROL 0.5-3(2.5)MG/3ML NEB NEB SCH ×2 (16:36→22:35)
[2021-10-15] MEDS: RISPERIDONE 0.25MG TABLET PO SCH (18:31)
[2021-10-15 20:00] VITALS: BP 131/75
[2021-10-15] MEDS: FAMOTIDINE 20MG TABLET PO SCH (21:37)
[2021-10-15 22:05] LABS: HEMATOCRIT. 35.3 % (42.0-52.0); HEMOGLOBIN. 11.8 g/dL (14.0-18.0); MEAN CORPUSCULAR HEMOGLOBIN 32.1 pg (28.0-32.0); MEAN CORPUSCULAR VOLUME 96.3 fL (80.0-94.0); MEAN PLATELET VOLUME 10.4 fl (7.4-10.4); PLATELET 268 x1000/uL (130-400); RED BLOOD CELL COUNT 3.67 mill/uL (4.7-6.1)
[2021-10-15 23:18] LABS: PLATELET ESTIMATE NORMAL
[2021-10-16] VITALS: BP 128/60
[2021-10-16] MEDS: BLOOD SUGAR DIAGNOSTIC STRIP TEST SCH ×4 (00:12→18:55)
[2021-10-16 04:00] VITALS: BP 123/72
[2021-10-16] MEDS: DILTIAZEM HCL 90MG TABLET PO SCH ×3 (05:52→21:39)
[2021-10-16] MEDS: INSULIN LISPRO 100 UNITS/ML SUBCUT SCH ×4 (05:54→18:00)
[2021-10-16 08:00] VITALS: BP 125/70
[2021-10-16] MEDS: IPRATROPIUM/ALBUTEROL 0.5-3(2.5)MG/3ML NEB NEB SCH ×3 (09:20→21:34)
[2021-10-16] MEDS: LEVETIRACETAM 500MG PREMIX 100 ML IV SCH ×2 (09:30→20:41)
[2021-10-16] MEDS: RISPERIDONE 0.25MG TABLET PO SCH (09:30)
[2021-10-16] MEDS: DEXAMETHASONE 4MG/ML 1ML VIAL IV SCH (09:30)
[2021-10-16] MEDS: LORAZEPAM 2MG/ML CPJ IV PRN (09:30)
[2021-10-16 12:00] VITALS: BP 130/73
[2021-10-16 16:00] VITALS: BP 122/68
[2021-10-16] MEDS: CEFEPIME 1,000 MG in DEXTROSE 5% WATER 50 ML IV SCH (19:01)
[2021-10-16 20:00] VITALS: BP 140/87
[2021-10-16] MEDS: FAMOTIDINE 20MG TABLET PO SCH (21:36)
[2021-10-16] MEDS: DOXYCYCLINE 100 MG in DEXT 5% WATER 100 ML IV SCH (21:36)
[2021-10-17] VITALS: BP 124/75
[2021-10-17 04:00] VITALS: BP 131/85
[2021-10-17] MEDS: CEFEPIME 1,000 MG in DEXTROSE 5% WATER 50 ML IV SCH ×2 (05:23→17:13)
[2021-10-17] MEDS: DILTIAZEM HCL 90MG TABLET PO SCH (05:24)
[2021-10-17] MEDS: DOXYCYCLINE 100 MG in DEXT 5% WATER 100 ML IV SCH ×2 (05:24→17:13)
[2021-10-17] MEDS: BLOOD SUGAR DIAGNOSTIC STRIP TEST SCH ×4 (05:25→18:29)
[2021-10-17] MEDS: INSULIN LISPRO 100 UNITS/ML SUBCUT SCH ×4 (05:25→18:00)
[2021-10-17 07:22] LABS: HEMATOCRIT. 35.5 % (42.0-52.0); HEMOGLOBIN. 11.5 g/dL (14.0-18.0); MEAN CORPUSCULAR HEMOGLOBIN 30.1 pg (28.0-32.0); MEAN PLATELET VOLUME 9.9 fl (7.4-10.4); PLATELET 226 x1000/uL (130-400); RED BLOOD CELL COUNT 3.82 mill/uL (4.7-6.1); RED CELL DISTRIBUTION WIDTH 14.8 % (11.6-14.6)
[2021-10-17 08:00] VITALS: BP 125/80
[2021-10-17] MEDS: IPRATROPIUM/ALBUTEROL 0.5-3(2.5)MG/3ML NEB NEB SCH ×3 (10:05→20:37)
[2021-10-17] MEDS: LEVETIRACETAM 500MG PREMIX 100 ML IV SCH ×2 (11:23→20:44)
[2021-10-17] MEDS: RISPERIDONE 0.25MG TABLET PO SCH (11:24)
[2021-10-17] MEDS: DEXAMETHASONE 4MG/ML 1ML VIAL IV SCH (11:24)
[2021-10-17 16:00] VITALS: BP 130/83
[2021-10-17 17:54] LABS: PLATELET ESTIMATE NORMAL
[2021-10-17] MEDS: DILTIAZEM HCL 60MG TABLET PO SCH ×2 (18:28→23:44)
[2021-10-17 20:00] VITALS: BP 133/76
[2021-10-17] MEDS: FAMOTIDINE 20MG TABLET PO SCH (20:45)
[2021-10-17] MEDS ORDERED: *PATIENT'S OWN MEDICATION STORAGE XX SCH (22:30)
[2021-10-18] VITALS: BP 121/83
[2021-10-18] MEDS: BLOOD SUGAR DIAGNOSTIC STRIP TEST SCH ×4 (00:33→17:05)
[2021-10-18] MEDS: IPRATROPIUM/ALBUTEROL 0.5-3(2.5)MG/3ML NEB NEB SCH ×4 (01:59→20:54)
[2021-10-18 04:00] VITALS: BP 141/56
[2021-10-18] MEDS: INSULIN LISPRO 100 UNITS/ML SUBCUT SCH ×4 (06:00→17:05)
[2021-10-18] MEDS: CEFEPIME 1,000 MG in DEXTROSE 5% WATER 50 ML IV SCH ×2 (06:08→17:05)
[2021-10-18] MEDS: DOXYCYCLINE 100 MG in DEXT 5% WATER 100 ML IV SCH ×2 (06:10→17:19)
[2021-10-18] MEDS: DILTIAZEM HCL 60MG TABLET PO SCH ×3 (06:11→17:19)
[2021-10-18 06:14] LABS: HEMATOCRIT. 37.5 % (42.0-52.0); MEAN CORPUSCULAR HEMOGLOBIN 29.7 pg (28.0-32.0); MEAN CORPUSCULAR VOLUME 92.6 fL (80.0-94.0); MEAN PLATELET VOLUME 10.5 fl (7.4-10.4); PLATELET 234 x1000/uL (130-400); RED BLOOD CELL COUNT 4.05 mill/uL (4.7-6.1); RED CELL DISTRIBUTION WIDTH 14.9 % (11.6-14.6)
[2021-10-18 06:27] LABS: CHLORIDE 115 mEq/L (98-107)
[2021-10-18 08:00] VITALS: BP 120/72
[2021-10-18] MEDS: LEVETIRACETAM 500MG PREMIX 100 ML IV SCH ×2 (08:41→21:50)
[2021-10-18] MEDS: DEXAMETHASONE 4MG/ML 1ML VIAL IV SCH (08:41)
[2021-10-18] MEDS: RISPERIDONE 0.25MG TABLET PO SCH (08:41)
[2021-10-18 10:27] LABS: PLATELET ESTIMATE NORMAL
[2021-10-18 12:00] VITALS: BP 127/72
[2021-10-18 16:00] VITALS: BP 117/68
[2021-10-18 20:00] VITALS: BP 109/64
[2021-10-18] MEDS: FAMOTIDINE 20MG TABLET PO SCH (21:50)
[2021-10-19] VITALS: BP 118/64
[2021-10-19] MEDS: BLOOD SUGAR DIAGNOSTIC STRIP TEST SCH ×4 (00:44→17:24)
[2021-10-19] MEDS: DILTIAZEM HCL 60MG TABLET PO SCH ×4 (00:46→17:24)
[2021-10-19] MEDS: IPRATROPIUM/ALBUTEROL 0.5-3(2.5)MG/3ML NEB NEB SCH ×4 (01:25→22:28)
[2021-10-19 04:00] VITALS: BP 117/63
[2021-10-19] MEDS: CEFEPIME 1,000 MG in DEXTROSE 5% WATER 50 ML IV SCH ×2 (05:57→17:24)
[2021-10-19] MEDS: INSULIN LISPRO 100 UNITS/ML SUBCUT SCH ×4 (06:00→17:24)
[2021-10-19] MEDS: DOXYCYCLINE 100 MG in DEXT 5% WATER 100 ML IV SCH ×2 (06:58→17:24)
[2021-10-19 08:00] VITALS: BP 119/61
[2021-10-19 08:39] LABS: HEMOGLOBIN. 12.4 g/dL (14.0-18.0); MEAN CORPUSCULAR HEMOGLOBIN 30.3 pg (28.0-32.0); MEAN CORPUSCULAR VOLUME 93.2 fL (80.0-94.0); MEAN PLATELET VOLUME 10.2 fl (7.4-10.4); PLATELET 221 x1000/uL (130-400); RED BLOOD CELL COUNT 4.08 mill/uL (4.7-6.1)
[2021-10-19] MEDS: LEVETIRACETAM 500MG PREMIX 100 ML IV SCH ×2 (08:52→20:38)
[2021-10-19] MEDS: RISPERIDONE 0.25MG TABLET PO SCH (08:52)
[2021-10-19] MEDS: DEXAMETHASONE 4MG/ML 1ML VIAL IV SCH (08:52)
[2021-10-19 09:13] LABS: CHLORIDE 114 mEq/L (98-107)
[2021-10-19 12:00] VITALS: BP 122/62
[2021-10-19 13:37] LABS: PLATELET ESTIMATE NORMAL
[2021-10-19 16:00] VITALS: BP 131/73
[2021-10-19 20:00] VITALS: BP 127/71
[2021-10-19] MEDS: FAMOTIDINE 20MG TABLET PO SCH (20:38)
[2021-10-20] VITALS: BP_SYST 106; BP_SYST 116; BP_DIAS 77; BP_DIAS 79
[2021-10-20] MEDS: IPRATROPIUM/ALBUTEROL 0.5-3(2.5)MG/3ML NEB NEB SCH ×4 (02:22→20:19)
[2021-10-20 04:00] VITALS: BP 111/67
[2021-10-20] MEDS: INSULIN LISPRO 100 UNITS/ML SUBCUT SCH ×4 (05:40→17:02)
[2021-10-20] MEDS: BLOOD SUGAR DIAGNOSTIC STRIP TEST SCH ×4 (05:40→17:02)
[2021-10-20] MEDS: DILTIAZEM HCL 60MG TABLET PO SCH ×4 (06:06→17:02)
[2021-10-20] MEDS: DOXYCYCLINE 100 MG in DEXT 5% WATER 100 ML IV SCH ×2 (06:06→17:01)
[2021-10-20] MEDS: CEFEPIME 1,000 MG in DEXTROSE 5% WATER 50 ML IV SCH ×2 (06:06→17:02)
[2021-10-20 08:00] VITALS: BP 140/74
[2021-10-20] MEDS: LEVETIRACETAM 500MG PREMIX 100 ML IV SCH ×2 (08:50→21:03)
[2021-10-20] MEDS: RISPERIDONE 0.25MG TABLET PO SCH (08:50)
[2021-10-20 09:24] LABS: HEMATOCRIT. 36.3 % (42.0-52.0); HEMOGLOBIN. 11.5 g/dL (14.0-18.0); MEAN CORPUSCULAR HEMOGLOBIN 29.8 pg (28.0-32.0); MEAN CORPUSCULAR VOLUME 93.7 fL (80.0-94.0); MEAN PLATELET VOLUME 9.7 fl (7.4-10.4); RED BLOOD CELL COUNT 3.87 mill/uL (4.7-6.1)
[2021-10-20 09:46] LABS: CHLORIDE 114 mEq/L (98-107)
[2021-10-20 12:00] VITALS: BP 114/62
[2021-10-20 13:42] LABS: PLATELET ESTIMATE NORMAL
[2021-10-20 13:45] LABS: PLATELET 214 x1000/uL (130-400)
[2021-10-20 16:00] VITALS: BP 128/77
[2021-10-20] MEDS: MEGESTROL ACETATE 400 MG/10 ML UDC PO SCH (17:38)
[2021-10-20 20:00] VITALS: BP 114/69
[2021-10-20] MEDS: FAMOTIDINE 20MG TABLET PO SCH (21:03)
[2021-10-21] VITALS: BP 121/71
[2021-10-21] MEDS: BLOOD SUGAR DIAGNOSTIC STRIP TEST SCH ×4 (00:47→17:00)
[2021-10-21] MEDS: DILTIAZEM HCL 60MG TABLET PO SCH ×4 (00:48→17:01)
[2021-10-21 04:00] VITALS: BP 125/67
[2021-10-21] MEDS: DOXYCYCLINE 100 MG in DEXT 5% WATER 100 ML IV SCH (05:46)
[2021-10-21] MEDS: CEFEPIME 1,000 MG in DEXTROSE 5% WATER 50 ML IV SCH (05:46)
[2021-10-21] MEDS: INSULIN LISPRO 100 UNITS/ML SUBCUT SCH ×4 (05:59→17:00)
[2021-10-21 06:24] LABS: HEMOGLOBIN. 12.3 g/dL (14.0-18.0); MEAN CORPUSCULAR HEMOGLOBIN 29.9 pg (28.0-32.0); MEAN CORPUSCULAR VOLUME 91.9 fL (80.0-94.0); MEAN PLATELET VOLUME 9.7 fl (7.4-10.4); PLATELET 195 x1000/uL (130-400); RED BLOOD CELL COUNT 4.13 mill/uL (4.7-6.1)
[2021-10-21 06:27] LABS: CHLORIDE 113 mEq/L (98-107)
[2021-10-21] MEDS: IPRATROPIUM/ALBUTEROL 0.5-3(2.5)MG/3ML NEB NEB SCH ×3 (07:24→21:12)
[2021-10-21 08:06] VITALS: BP 100/68
[2021-10-21] MEDS: LEVETIRACETAM 500MG PREMIX 100 ML IV SCH ×2 (09:01→20:44)
[2021-10-21] MEDS: RISPERIDONE 0.25MG TABLET PO SCH (09:02)
[2021-10-21] MEDS: MEGESTROL ACETATE 400 MG/10 ML UDC PO SCH (09:02)
[2021-10-21 12:00] VITALS: BP 102/57
[2021-10-21] MEDS: DEXT 5%/0.45% NACL KCL 20MEQ/L 1,000 ML IV SCH (12:46)
[2021-10-21 15:38] LABS: PLATELET ESTIMATE NORMAL
[2021-10-21 16:00] VITALS: BP 124/63
[2021-10-21 20:00] VITALS: BP 93/55
[2021-10-21] MEDS: FAMOTIDINE 20MG TABLET PO SCH (20:44)
[2021-10-22] VITALS: BP 101/54
[2021-10-22] MEDS: IPRATROPIUM/ALBUTEROL 0.5-3(2.5)MG/3ML NEB NEB SCH ×4 (02:18→20:06)
[2021-10-22] MEDS: DEXT 5%/0.45% NACL KCL 20MEQ/L 1,000 ML IV SCH ×2 (03:54→13:55)
[2021-10-22 04:00] VITALS: BP 123/44
[2021-10-22] MEDS: BLOOD SUGAR DIAGNOSTIC STRIP TEST SCH ×4 (05:33→17:11)
[2021-10-22] MEDS: INSULIN LISPRO 100 UNITS/ML SUBCUT SCH ×4 (05:51→17:11)
[2021-10-22] MEDS: DILTIAZEM HCL 60MG TABLET PO SCH ×5 (05:52→23:58)
[2021-10-22 06:23] LABS: HEMATOCRIT. 33.8 % (42.0-52.0); HEMOGLOBIN. 11.3 g/dL (14.0-18.0); MEAN CORPUSCULAR HEMOGLOBIN 30.8 pg (28.0-32.0); MEAN CORPUSCULAR VOLUME 92.1 fL (80.0-94.0); MEAN PLATELET VOLUME 9.8 fl (7.4-10.4); PLATELET 179 x1000/uL (130-400); RED BLOOD CELL COUNT 3.67 mill/uL (4.7-6.1); RED CELL DISTRIBUTION WIDTH 14.9 % (11.6-14.6)
[2021-10-22] MEDS: DOCUSATE SODIUM 100MG CAPSULE PO PRN (06:26)
[2021-10-22 06:35] LABS: CHLORIDE 116 mEq/L (98-107)
[2021-10-22 08:16] VITALS: BP 113/52
[2021-10-22] MEDS: RISPERIDONE 0.25MG TABLET PO SCH (08:44)
[2021-10-22] MEDS: LEVETIRACETAM 500MG PREMIX 100 ML IV SCH ×2 (08:45→20:35)
[2021-10-22 12:37] VITALS: BP 109/50
[2021-10-22 13:08] LABS: PLATELET ESTIMATE NORMAL
[2021-10-22 16:20] VITALS: BP 101/51
[2021-10-22 20:00] VITALS: BP 108/57
[2021-10-22] MEDS: FAMOTIDINE 20MG TABLET PO SCH (20:35)
[2021-10-23] VITALS: BP 132/58
[2021-10-23] MEDS: BLOOD SUGAR DIAGNOSTIC STRIP TEST SCH ×4 (00:04→18:41)
[2021-10-23] MEDS: IPRATROPIUM/ALBUTEROL 0.5-3(2.5)MG/3ML NEB NEB SCH ×4 (01:56→22:40)
[2021-10-23 04:00] VITALS: BP 113/57
[2021-10-23] MEDS: DEXT 5%/0.45% NACL KCL 20MEQ/L 1,000 ML IV SCH (05:39)
[2021-10-23] MEDS: DILTIAZEM HCL 60MG TABLET PO SCH ×3 (05:40→18:49)
[2021-10-23] MEDS: INSULIN LISPRO 100 UNITS/ML SUBCUT SCH ×4 (05:44→18:00)
[2021-10-23 08:00] VITALS: BP 127/73
[2021-10-23] MEDS: RISPERIDONE 0.25MG TABLET PO SCH (09:29)
[2021-10-23] MEDS: LEVETIRACETAM 500MG PREMIX 100 ML IV SCH ×2 (09:30→22:24)
[2021-10-23 12:00] VITALS: BP 110/60
[2021-10-23 15:56] LABS: BG BASE EXCESS -8.2 mmol/L (-2.0-2.0); BG CARBOXYHEMOGLOBIN 0.5 % (0.5-1.5); BG DEOXYHEMOGLOBIN 20.6 % (0.0-5.0); BG FRACTION INSPIRED OXYGEN 36; BG HCO3 ACT 15.1 mmol/L (22.0-26.0); BG METHEMOGLOBIN 0.1 % (0.0-1.5); BG OXYGEN SATURATION 79.3 % (92.0-98.5); BG OXYHEMOGLOBIN 78.8 % (94.0-97.0); BG PCO2 25.4 mmHg (35.0-45.0); BG PH 7.393 (7.350-7.450); BG PO2 42.9 mmHg (75.0-100.0); BG SAMPLE SITE LEFT BRACHIAL; BG VENT MODE NASAL CANNULA
[2021-10-23 16:00] VITALS: BP 138/71
[2021-10-23] MEDS ORDERED: FUROSEMIDE 20MG/2ML VIAL IVP NR (16:00)
[2021-10-23] MEDS: DEXAMETHASONE 10 MG/ML VIAL IV SCH (16:23)
[2021-10-23 16:56] LABS: BG BASE EXCESS -12.2 mmol/L (-2.0-2.0); BG CARBOXYHEMOGLOBIN 0.3 % (0.5-1.5); BG DEOXYHEMOGLOBIN 9.2 % (0.0-5.0); BG FRACTION INSPIRED OXYGEN 36; BG HCO3 ACT 9.5 mmol/L (22.0-26.0); BG METHEMOGLOBIN 0.1 % (0.0-1.5); BG OXYGEN SATURATION 90.8 % (92.0-98.5); BG OXYHEMOGLOBIN 90.4 % (94.0-97.0); BG PO2 56.9 mmHg (75.0-100.0); BG TOTAL HEMOGLOBIN 9.9 g/dL (12.0-18.0); BG VENT MODE NASAL CANNULA
[2021-10-23 18:15] LABS: HEMATOCRIT. 38.1 % (42.0-52.0); HEMOGLOBIN. 11.8 g/dL (14.0-18.0); MEAN CORPUSCULAR HEMOGLOBIN 29.3 pg (28.0-32.0); MEAN CORPUSCULAR VOLUME 94.8 fL (80.0-94.0); MEAN PLATELET VOLUME 9.4 fl (7.4-10.4); PLATELET 162 x1000/uL (130-400); RED BLOOD CELL COUNT 4.02 mill/uL (4.7-6.1); RED CELL DISTRIBUTION WIDTH 16.7 % (11.6-14.6)
[2021-10-23 18:20] LABS: CHLORIDE 121 mEq/L (98-107)
[2021-10-23 18:54] LABS: PLATELET ESTIMATE NORMAL
[2021-10-23 20:00] VITALS: BP 118/74
[2021-10-23] MEDS: FAMOTIDINE 20MG TABLET PO SCH (21:00)
[2021-10-23] MEDS: LORAZEPAM 2MG/ML CPJ IV PRN (22:22)
[2021-10-24] VITALS (9 sets, daily range): BP systolic 92–124; BP diastolic 48–70
[2021-10-24] MEDS: BLOOD SUGAR DIAGNOSTIC STRIP TEST SCH ×5 (00:16→23:03)
[2021-10-24] MEDS: DILTIAZEM HCL 60MG TABLET PO SCH ×5 (00:20→23:02)
[2021-10-24] MEDS: LORAZEPAM 2MG/ML CPJ IV PRN (04:24)
[2021-10-24] MEDS: IPRATROPIUM/ALBUTEROL 0.5-3(2.5)MG/3ML NEB NEB SCH ×4 (04:50→20:32)
[2021-10-24] MEDS ORDERED: SODIUM BICARBONATE 8.4% 1 MEQ/ML 50ML SYR IV SCH (05:00)
[2021-10-24] MEDS: INSULIN LISPRO 100 UNITS/ML SUBCUT SCH ×5 (05:32→23:01)
[2021-10-24 05:47] LABS: BG BASE EXCESS -8.8 mmol/L (-2.0-2.0); BG CARBOXYHEMOGLOBIN 0.3 % (0.5-1.5); BG FRACTION INSPIRED OXYGEN 40; BG HCO3 ACT 14.5 mmol/L (22.0-26.0); BG METHEMOGLOBIN 0.2 % (0.0-1.5); BG OXYHEMOGLOBIN 91.5 % (94.0-97.0); BG PCO2 24.4 mmHg (35.0-45.0); BG PH 7.392 (7.350-7.450); BG PO2 64.7 mmHg (75.0-100.0); BG SAMPLE SITE RIGHT RADIAL; BG TOTAL HEMOGLOBIN 11.8 g/dL (12.0-18.0); BG VENT MODE MASK - BIPAP
[2021-10-24] MEDS: SODIUM BICARBONATE 100 MEQ in DEXT 5%/0.45% NACL 1000ML 1,000 ML IV SCH ×2 (06:05→21:48)
[2021-10-24 06:54] LABS: HEMATOCRIT. 33.2 % (42.0-52.0); MEAN CORPUSCULAR HEMOGLOBIN 30.8 pg (28.0-32.0); MEAN CORPUSCULAR VOLUME 92.8 fL (80.0-94.0); PLATELET 140 x1000/uL (130-400); RED BLOOD CELL COUNT 3.57 mill/uL (4.7-6.1); RED CELL DISTRIBUTION WIDTH 15.8 % (11.6-14.6)
[2021-10-24] MEDS: LEVETIRACETAM 500MG PREMIX 100 ML IV SCH ×2 (09:00→21:48)
[2021-10-24] MEDS: RISPERIDONE 0.25MG TABLET PO SCH (09:00)
[2021-10-24] MEDS: DEXAMETHASONE 10 MG/ML VIAL IV SCH (09:00)
[2021-10-24 14:31] LABS: BG DEOXYHEMOGLOBIN 11.2 % (0.0-5.0); BG FRACTION INSPIRED OXYGEN 55; BG HCO3 ACT 15.7 mmol/L (22.0-26.0); BG METHEMOGLOBIN 0.1 % (0.0-1.5); BG OXYGEN SATURATION 88.8 % (92.0-98.5); BG OXYHEMOGLOBIN 88.7 % (94.0-97.0); BG PCO2 24.1 mmHg (35.0-45.0); BG PH 7.432 (7.350-7.450); BG PO2 57.5 mmHg (75.0-100.0); BG SAMPLE SITE RIGHT RADIAL; BG TOTAL HEMOGLOBIN 11.2 g/dL (12.0-18.0); BG TOTAL RESPIRATORY RATE 44 b/min; BG VENT MODE MASK - BIPAP
[2021-10-24 20:06] LABS: BG CARBOXYHEMOGLOBIN 0.3 % (0.5-1.5); BG DEOXYHEMOGLOBIN 11.3 % (0.0-5.0); BG FRACTION INSPIRED OXYGEN 70; BG METHEMOGLOBIN 0.6 % (0.0-1.5); BG OXYGEN SATURATION 88.6 % (92.0-98.5); BG OXYHEMOGLOBIN 87.8 % (94.0-97.0); BG PCO2 23.6 mmHg (35.0-45.0); BG PH 7.476 (7.350-7.450); BG PO2 54.1 mmHg (75.0-100.0); BG SAMPLE SITE RIGHT RADIAL; BG TOTAL HEMOGLOBIN 11.4 g/dL (12.0-18.0); BG TOTAL RESPIRATORY RATE 39 b/min; BG VENT MODE MASK - BIPAP
[2021-10-24 20:44] LABS: PLATELET ESTIMATE NORMAL
[2021-10-24] MEDS: FAMOTIDINE 20MG TABLET PO SCH (21:00)
[2021-10-25] VITALS (12 sets, daily range): BP systolic 96–128; BP diastolic 38–112
[2021-10-25] MEDS: IPRATROPIUM/ALBUTEROL 0.5-3(2.5)MG/3ML NEB NEB SCH ×4 (00:33→20:46)
[2021-10-25] MEDS: INSULIN LISPRO 100 UNITS/ML SUBCUT SCH ×3 (05:04→18:00)
[2021-10-25] MEDS: BLOOD SUGAR DIAGNOSTIC STRIP TEST SCH ×3 (05:04→18:23)
[2021-10-25] MEDS: DILTIAZEM HCL 60MG TABLET PO SCH ×3 (05:05→18:32)
[2021-10-25 07:08] LABS: HEMATOCRIT. 32.6 % (42.0-52.0); HEMOGLOBIN. 10.8 g/dL (14.0-18.0); MEAN CORPUSCULAR HEMOGLOBIN 30.7 pg (28.0-32.0); MEAN CORPUSCULAR VOLUME 92.3 fL (80.0-94.0); MEAN PLATELET VOLUME 8.5 fl (7.4-10.4); PLATELET 80 x1000/uL (130-400); RED BLOOD CELL COUNT 3.53 mill/uL (4.7-6.1); RED CELL DISTRIBUTION WIDTH 15.5 % (11.6-14.6)
[2021-10-25 07:34] LABS: CHLORIDE 124 mEq/L (98-107)
[2021-10-25 08:44] LABS: BG BASE EXCESS -2.6 mmol/L (-2.0-2.0); BG CARBOXYHEMOGLOBIN 0.4 % (0.5-1.5); BG DEOXYHEMOGLOBIN 4.7 % (0.0-5.0); BG FRACTION INSPIRED OXYGEN 90; BG HCO3 ACT 20.3 mmol/L (22.0-26.0); BG METHEMOGLOBIN 0.3 % (0.0-1.5); BG OXYGEN SATURATION 95.3 % (92.0-98.5); BG OXYHEMOGLOBIN 94.6 % (94.0-97.0); BG PCO2 29.1 mmHg (35.0-45.0); BG PH 7.461 (7.350-7.450); BG SAMPLE SITE RIGHT RADIAL; BG TOTAL HEMOGLOBIN 11.2 g/dL (12.0-18.0); BG VENT MODE MASK - BIPAP
[2021-10-25] MEDS ORDERED: DEXT 5%/0.45% NACL KCL 40MEQ/L 1,000 ML IV ONE (08:45)
[2021-10-25] MEDS: DEXAMETHASONE 10 MG/ML VIAL IV SCH (08:52)
[2021-10-25] MEDS: LEVETIRACETAM 500MG PREMIX 100 ML IV SCH ×2 (08:52→20:57)
[2021-10-25] MEDS: RISPERIDONE 0.25MG TABLET PO SCH (09:02)
[2021-10-25] MEDS: KCL 20MEQ/100ML PREMIX 100 ML IV SCH ×2 (11:08→15:20)
[2021-10-25 13:33] LABS: BG CARBOXYHEMOGLOBIN 0.4 % (0.5-1.5); BG DEOXYHEMOGLOBIN 9.3 % (0.0-5.0); BG FRACTION INSPIRED OXYGEN 80; BG METHEMOGLOBIN 0.1 % (0.0-1.5); BG OXYGEN SATURATION 90.7 % (92.0-98.5); BG OXYHEMOGLOBIN 90.2 % (94.0-97.0); BG PCO2 35.7 mmHg (35.0-45.0); BG PH 7.427 (7.350-7.450); BG PO2 59.5 mmHg (75.0-100.0); BG SAMPLE SITE RIGHT RADIAL; BG TOTAL HEMOGLOBIN 11.3 g/dL (12.0-18.0); BG VENT MODE MASK - BIPAP
[2021-10-25] MEDS: SODIUM BICARBONATE 100 MEQ in DEXT 5%/0.45% NACL 1000ML 1,000 ML IV SCH (15:20)
[2021-10-25] MEDS ORDERED: MORPHINE SULFATE 2 MG/ML CPJ (NOT FOR IM USE) IV PRN (16:00)
[2021-10-25] MEDS ORDERED: NALOXONE HCL 0.4MG/ML VIAL IV PRN (16:15)
[2021-10-25 18:05] LABS: PLATELET ESTIMATE DECREASED
[2021-10-25] MEDS: CEFEPIME 1,000 MG in DEXTROSE 5% WATER 50 ML IV SCH (18:30)
[2021-10-25] MEDS: FAMOTIDINE 20MG TABLET PO SCH (20:57)
[2021-10-26] VITALS (12 sets, daily range): BP systolic 105–131; BP diastolic 61–84
[2021-10-26] MEDS: BLOOD SUGAR DIAGNOSTIC STRIP TEST SCH ×5 (00:35→23:50)
[2021-10-26] MEDS: DILTIAZEM HCL 60MG TABLET PO SCH ×5 (00:35→23:51)
[2021-10-26] MEDS: INSULIN LISPRO 100 UNITS/ML SUBCUT SCH ×4 (00:46→17:57)
[2021-10-26] MEDS: IPRATROPIUM/ALBUTEROL 0.5-3(2.5)MG/3ML NEB NEB SCH ×4 (01:30→20:50)
[2021-10-26] MEDS: CEFEPIME 1,000 MG in DEXTROSE 5% WATER 50 ML IV SCH ×3 (02:00→17:55)
[2021-10-26] MEDS: SODIUM BICARBONATE 100 MEQ in DEXT 5%/0.45% NACL 1000ML 1,000 ML IV SCH (05:09)
[2021-10-26 06:53] LABS: HEMATOCRIT. 31.9 % (42.0-52.0); HEMOGLOBIN. 10.6 g/dL (14.0-18.0); MEAN CORPUSCULAR HEMOGLOBIN 30.5 pg (28.0-32.0); MEAN CORPUSCULAR VOLUME 92.2 fL (80.0-94.0); MEAN PLATELET VOLUME 8.7 fl (7.4-10.4); RED BLOOD CELL COUNT 3.46 mill/uL (4.7-6.1); RED CELL DISTRIBUTION WIDTH 16.2 % (11.6-14.6)
[2021-10-26 08:15] LABS: BG BASE EXCESS 1.2 mmol/L (-2.0-2.0); BG CARBOXYHEMOGLOBIN 0.3 % (0.5-1.5); BG FRACTION INSPIRED OXYGEN 100; BG HCO3 ACT 24.7 mmol/L (22.0-26.0); BG METHEMOGLOBIN 0.2 % (0.0-1.5); BG OXYHEMOGLOBIN 97.5 % (94.0-97.0); BG PCO2 35.4 mmHg (35.0-45.0); BG PH 7.462 (7.350-7.450); BG PO2 106.6 mmHg (75.0-100.0); BG SAMPLE SITE RIGHT RADIAL; BG TOTAL HEMOGLOBIN 11.9 g/dL (12.0-18.0); BG TOTAL RESPIRATORY RATE 32 b/min; BG VENT MODE MASK - BIPAP
[2021-10-26 08:18] LABS: PLATELET 34 x1000/uL (130-400)
[2021-10-26] MEDS: DEXAMETHASONE 10 MG/ML VIAL IV SCH (09:48)
[2021-10-26] MEDS: RISPERIDONE 0.25MG TABLET PO SCH (09:48)
[2021-10-26] MEDS: LEVETIRACETAM 500MG PREMIX 100 ML IV SCH ×2 (09:49→22:04)
[2021-10-26] MEDS: DEXTROSE 5% WATER 1,000 ML IV SCH (13:00)
[2021-10-26 14:06] LABS: PLATELET ESTIMATE MARKEDLY DECREASED
[2021-10-26] MEDS: FAMOTIDINE 20MG TABLET PO SCH (22:04)
[2021-10-27] VITALS (12 sets, daily range): BP systolic 102–138; BP diastolic 62–87
[2021-10-27] MEDS: INSULIN LISPRO 100 UNITS/ML SUBCUT SCH ×4 (00:14→17:26)
[2021-10-27] MEDS: IPRATROPIUM/ALBUTEROL 0.5-3(2.5)MG/3ML NEB NEB SCH ×4 (01:03→21:09)
[2021-10-27] MEDS: CEFEPIME 1,000 MG in DEXTROSE 5% WATER 50 ML IV SCH ×2 (01:35→09:54)
[2021-10-27] MEDS: DEXTROSE 5% WATER 1,000 ML IV SCH ×2 (01:36→13:51)
[2021-10-27] MEDS: DILTIAZEM HCL 60MG TABLET PO SCH ×3 (06:24→17:50)
[2021-10-27] MEDS: BLOOD SUGAR DIAGNOSTIC STRIP TEST SCH ×4 (06:24→23:24)
[2021-10-27 08:49] LABS: HEMATOCRIT. 31.6 % (42.0-52.0); HEMOGLOBIN. 10.4 g/dL (14.0-18.0); MEAN CORPUSCULAR HEMOGLOBIN 31.3 pg (28.0-32.0); MEAN CORPUSCULAR VOLUME 94.9 fL (80.0-94.0); MEAN PLATELET VOLUME 11.2 fl (7.4-10.4); RED BLOOD CELL COUNT 3.33 mill/uL (4.7-6.1); RED CELL DISTRIBUTION WIDTH 16.6 % (11.6-14.6)
[2021-10-27 09:04] LABS: BG BASE EXCESS -2.6 mmol/L (-2.0-2.0); BG CARBOXYHEMOGLOBIN 0.1 % (0.5-1.5); BG DEOXYHEMOGLOBIN 0.4 % (0.0-5.0); BG FRACTION INSPIRED OXYGEN 100; BG HCO3 ACT 22.3 mmol/L (22.0-26.0); BG METHEMOGLOBIN 0.3 % (0.0-1.5); BG OXYGEN SATURATION 99.6 % (92.0-98.5); BG OXYHEMOGLOBIN 99.2 % (94.0-97.0); BG PCO2 38.7 mmHg (35.0-45.0); BG PH 7.378 (7.350-7.450); BG PO2 226.1 mmHg (75.0-100.0); BG SAMPLE SITE RIGHT RADIAL; BG TOTAL HEMOGLOBIN 10.5 g/dL (12.0-18.0); BG VENT MODE MASK - BIPAP
[2021-10-27] MEDS: RISPERIDONE 0.25MG TABLET PO SCH (09:09)
[2021-10-27] MEDS: LEVETIRACETAM 500MG PREMIX 100 ML IV SCH ×2 (09:09→21:42)
[2021-10-27] MEDS: DEXAMETHASONE 10 MG/ML VIAL IV SCH (09:09)
[2021-10-27 09:12] LABS: PLATELET 36 x1000/uL (130-400)
[2021-10-27 09:54] LABS: NUCLEATED RED BLOOD CELLS 1 /100 WBC
[2021-10-27 09:55] LABS: PLATELET ESTIMATE MARKEDLY DECREASED
[2021-10-27] MEDS: MEROPENEM 1,000 MG in SODIUM CHLORIDE 0.9% 100 ML IV SCH (17:50)
[2021-10-27] MEDS ORDERED: CEFEPIME 1,000 MG in DEXTROSE 5% WATER 50 ML IV SCH (21:00)
[2021-10-27] MEDS: FAMOTIDINE 20MG TABLET PO SCH (21:42)
[2021-10-28] VITALS (13 sets, daily range): BP systolic 102–132; BP diastolic 51–95
[2021-10-28] MEDS: DILTIAZEM HCL 60MG TABLET PO SCH ×4 (00:09→17:59)
[2021-10-28] MEDS: INSULIN LISPRO 100 UNITS/ML SUBCUT SCH ×4 (00:11→17:59)
[2021-10-28] MEDS: IPRATROPIUM/ALBUTEROL 0.5-3(2.5)MG/3ML NEB NEB SCH ×4 (02:54→20:12)
[2021-10-28] MEDS: DEXTROSE 5% WATER 1,000 ML IV SCH ×2 (03:14→17:59)
[2021-10-28] MEDS: BLOOD SUGAR DIAGNOSTIC STRIP TEST SCH ×3 (05:27→17:59)
[2021-10-28] MEDS: MEROPENEM 1,000 MG in SODIUM CHLORIDE 0.9% 100 ML IV SCH ×2 (05:37→17:58)
[2021-10-28 07:23] LABS: HEMATOCRIT. 27.2 % (42.0-52.0); HEMOGLOBIN. 9.2 g/dL (14.0-18.0); MEAN CORPUSCULAR HEMOGLOBIN 32.1 pg (28.0-32.0); MEAN CORPUSCULAR VOLUME 95.2 fL (80.0-94.0); MEAN PLATELET VOLUME 10.8 fl (7.4-10.4); RED BLOOD CELL COUNT 2.86 mill/uL (4.7-6.1); RED CELL DISTRIBUTION WIDTH 15.9 % (11.6-14.6)
[2021-10-28 08:23] LABS: PLATELET 31 x1000/uL (130-400)
[2021-10-28 08:32] LABS: BG BASE EXCESS -3.3 mmol/L (-2.0-2.0); BG CARBOXYHEMOGLOBIN 0.3 % (0.5-1.5); BG DEOXYHEMOGLOBIN 3.9 % (0.0-5.0); BG FRACTION INSPIRED OXYGEN 80; BG HCO3 ACT 20.7 mmol/L (22.0-26.0); BG METHEMOGLOBIN 0.6 % (0.0-1.5); BG OXYGEN SATURATION 96.1 % (92.0-98.5); BG OXYHEMOGLOBIN 95.2 % (94.0-97.0); BG PCO2 33.4 mmHg (35.0-45.0); BG PO2 89.9 mmHg (75.0-100.0); BG SAMPLE SITE RIGHT RADIAL; BG TOTAL HEMOGLOBIN 9.9 g/dL (12.0-18.0); BG TOTAL RESPIRATORY RATE 38 b/min; BG VENT MODE MASK - BIPAP
[2021-10-28] MEDS: RISPERIDONE 0.25MG TABLET PO SCH (09:00)
[2021-10-28 09:15] LABS: PLATELET ESTIMATE MARKEDLY DECREASED
[2021-10-28] MEDS: DEXAMETHASONE 10 MG/ML VIAL IV SCH (09:23)
[2021-10-28] MEDS: LEVETIRACETAM 500MG PREMIX 100 ML IV SCH ×2 (09:24→20:56)
[2021-10-28] MEDS: FAMOTIDINE 20MG TABLET PO SCH (20:56)
[2021-10-29] VITALS (12 sets, daily range): BP systolic 101–133; BP diastolic 51–78
[2021-10-29] MEDS: IPRATROPIUM/ALBUTEROL 0.5-3(2.5)MG/3ML NEB NEB SCH ×4 (02:37→19:49)
[2021-10-29] MEDS: BLOOD SUGAR DIAGNOSTIC STRIP TEST SCH ×4 (05:08→17:22)
[2021-10-29] MEDS: MEROPENEM 1,000 MG in SODIUM CHLORIDE 0.9% 100 ML IV SCH ×2 (05:12→17:35)
[2021-10-29] MEDS: DILTIAZEM HCL 60MG TABLET PO SCH ×4 (05:13→17:22)
[2021-10-29] MEDS: DEXTROSE 5% WATER 1,000 ML IV SCH ×2 (05:36→19:31)
[2021-10-29] MEDS: INSULIN LISPRO 100 UNITS/ML SUBCUT SCH ×4 (05:46→17:22)
[2021-10-29 07:14] LABS: HEMATOCRIT. 31.3 % (42.0-52.0); HEMOGLOBIN. 9.8 g/dL (14.0-18.0); MEAN CORPUSCULAR HEMOGLOBIN 29.7 pg (28.0-32.0); MEAN CORPUSCULAR VOLUME 94.7 fL (80.0-94.0); MEAN PLATELET VOLUME 11.1 fl (7.4-10.4); RED BLOOD CELL COUNT 3.31 mill/uL (4.7-6.1); RED CELL DISTRIBUTION WIDTH 16.6 % (11.6-14.6)
[2021-10-29 07:35] LABS: PLATELET 33 x1000/uL (130-400)
[2021-10-29] MEDS: RISPERIDONE 0.25MG TABLET PO SCH (09:00)
[2021-10-29] MEDS: LEVETIRACETAM 500MG PREMIX 100 ML IV SCH ×2 (09:16→21:16)
[2021-10-29] MEDS: DEXAMETHASONE 10 MG/ML VIAL IV SCH (09:16)
[2021-10-29 10:25] LABS: PLATELET ESTIMATE MARKEDLY DECREASED
[2021-10-29 16:28] LABS: BG BASE EXCESS -3.7 mmol/L (-2.0-2.0); BG CARBOXYHEMOGLOBIN 0.3 % (0.5-1.5); BG FRACTION INSPIRED OXYGEN 100; BG HCO3 ACT 24.8 mmol/L (22.0-26.0); BG OXYHEMOGLOBIN 98.7 % (94.0-97.0); BG PCO2 63.8 mmHg (35.0-45.0); BG PH 7.207 (7.350-7.450); BG PO2 197.6 mmHg (75.0-100.0); BG SAMPLE SITE RIGHT RADIAL; BG TOTAL RESPIRATORY RATE 22 b/min; BG VENT MODE MASK - BIPAP
[2021-10-29] MEDS: FAMOTIDINE 20MG TABLET PO SCH (21:16)
[2021-10-30] VITALS (12 sets, daily range): BP systolic 75–113; BP diastolic 40–69
[2021-10-30] MEDS: BLOOD SUGAR DIAGNOSTIC STRIP TEST SCH ×3 (00:36→12:07)
[2021-10-30] MEDS: INSULIN LISPRO 100 UNITS/ML SUBCUT SCH ×4 (00:39→17:09)
[2021-10-30] MEDS: IPRATROPIUM/ALBUTEROL 0.5-3(2.5)MG/3ML NEB NEB SCH ×3 (02:24→13:58)
[2021-10-30] MEDS: MEROPENEM 1,000 MG in SODIUM CHLORIDE 0.9% 100 ML IV SCH ×2 (05:00→17:41)
[2021-10-30] MEDS: DILTIAZEM HCL 60MG TABLET PO SCH ×4 (05:01→17:09)
[2021-10-30 06:22] LABS: HEMOGLOBIN. 9.5 g/dL (14.0-18.0); MEAN CORPUSCULAR HEMOGLOBIN 29.7 pg (28.0-32.0); MEAN CORPUSCULAR VOLUME 96.5 fL (80.0-94.0); RED BLOOD CELL COUNT 3.21 mill/uL (4.7-6.1); RED CELL DISTRIBUTION WIDTH 17.1 % (11.6-14.6)
[2021-10-30 06:27] LABS: PLATELET 48 x1000/uL (130-400)
[2021-10-30] MEDS: RISPERIDONE 0.25MG TABLET PO SCH (09:00)
[2021-10-30 09:05] LABS: BG BASE EXCESS -5.6 mmol/L (-2.0-2.0); BG CARBOXYHEMOGLOBIN 0.2 % (0.5-1.5); BG DEOXYHEMOGLOBIN 0.6 % (0.0-5.0); BG FRACTION INSPIRED OXYGEN 100; BG HCO3 ACT 27.9 mmol/L (22.0-26.0); BG METHEMOGLOBIN 0.4 % (0.0-1.5); BG OXYGEN SATURATION 99.4 % (92.0-98.5); BG OXYHEMOGLOBIN 98.8 % (94.0-97.0); BG PCO2 121.9 mmHg (35.0-45.0); BG PH 6.978 (7.350-7.450); BG PO2 216.1 mmHg (75.0-100.0); BG SAMPLE SITE RIGHT RADIAL; BG TOTAL HEMOGLOBIN 10.7 g/dL (12.0-18.0); BG VENT MODE MASK - BIPAP
[2021-10-30] MEDS ORDERED: SODIUM BICARBONATE 8.4% 1 MEQ/ML 50ML SYR IV NR (09:15)
[2021-10-30] MEDS: LEVETIRACETAM 500MG PREMIX 100 ML IV SCH ×2 (09:25→22:31)
[2021-10-30] MEDS: DEXTROSE 5% WATER 1,000 ML IV SCH ×2 (09:25→23:40)
[2021-10-30] MEDS: DEXAMETHASONE 10 MG/ML VIAL IV SCH (09:25)
[2021-10-30 13:51] LABS: NUCLEATED RED BLOOD CELLS 1 /100 WBC; PLATELET ESTIMATE MARKEDLY DECREASED
[2021-10-30 14:54] LABS: BG BASE EXCESS 0.9 mmol/L (-2.0-2.0); BG CARBOXYHEMOGLOBIN 0.3 % (0.5-1.5); BG DEOXYHEMOGLOBIN 3.4 % (0.0-5.0); BG FRACTION INSPIRED OXYGEN 100; BG METHEMOGLOBIN 0.2 % (0.0-1.5); BG OXYGEN SATURATION 96.6 % (92.0-98.5); BG OXYHEMOGLOBIN 96.1 % (94.0-97.0); BG PCO2 50.5 mmHg (35.0-45.0); BG PH 7.346 (7.350-7.450); BG PO2 82.9 mmHg (75.0-100.0); BG SAMPLE SITE RIGHT RADIAL; BG TOTAL HEMOGLOBIN 9.5 g/dL (12.0-18.0); BG VENT MODE MASK - BIPAP
[2021-10-30] MEDS ORDERED: MORPHINE SULFATE 2 MG/ML CPJ (NOT FOR IM USE) IV PRN (18:00)
[2021-10-30] MEDS: FAMOTIDINE 20MG TABLET PO SCH (21:00)
[2021-10-31] VITALS (12 sets, daily range): BP systolic 83–106; BP diastolic 50–69
[2021-10-31] MEDS: MEROPENEM 1,000 MG in SODIUM CHLORIDE 0.9% 100 ML IV SCH ×2 (05:14→18:37)
[2021-10-31] MEDS: DILTIAZEM HCL 60MG TABLET PO SCH ×3 (05:15→12:00)
[2021-10-31] MEDS: DEXTROSE 5% WATER 1,000 ML IV SCH ×2 (05:15→18:37)
[2021-10-31] MEDS: RISPERIDONE 0.25MG TABLET PO SCH (08:17)
[2021-10-31] MEDS: DEXAMETHASONE 10 MG/ML VIAL IV SCH (08:17)
[2021-10-31] MEDS: LEVETIRACETAM 500MG PREMIX 100 ML IV SCH ×2 (08:17→21:21)
[2021-10-31 08:43] LABS: BG BASE EXCESS 0.7 mmol/L (-2.0-2.0); BG CARBOXYHEMOGLOBIN 0.2 % (0.5-1.5); BG DEOXYHEMOGLOBIN 17.3 % (0.0-5.0); BG FRACTION INSPIRED OXYGEN 44; BG HCO3 ACT 26.7 mmol/L (22.0-26.0); BG METHEMOGLOBIN 0.3 % (0.0-1.5); BG OXYGEN SATURATION 82.6 % (92.0-98.5); BG OXYHEMOGLOBIN 82.2 % (94.0-97.0); BG PCO2 49.4 mmHg (35.0-45.0); BG PO2 45.7 mmHg (75.0-100.0); BG SAMPLE SITE RIGHT RADIAL; BG TOTAL HEMOGLOBIN 9.6 g/dL (12.0-18.0); BG VENT MODE NASAL CANNULA
[2021-10-31] MEDS: FAMOTIDINE 20MG TABLET PO SCH (21:00)
[2021-11-01] VITALS (12 sets, daily range): BP systolic 77–125; BP diastolic 41–65
[2021-11-01] MEDS: DEXTROSE 5% WATER 1,000 ML IV SCH ×2 (02:20→15:21)
[2021-11-01] MEDS: MEROPENEM 1,000 MG in SODIUM CHLORIDE 0.9% 100 ML IV SCH ×2 (05:18→18:20)
[2021-11-01] MEDS: DEXAMETHASONE 10 MG/ML VIAL IV SCH (08:27)
[2021-11-01] MEDS: RISPERIDONE 0.25MG TABLET PO SCH (08:27)
[2021-11-01] MEDS: LEVETIRACETAM 500MG PREMIX 100 ML IV SCH ×2 (08:27→21:17)
[2021-11-02] VITALS: BP 87/39
== END 2021-11-02 02:35 | DRG 871 ==
LOC: EDBEDREQ 12:45 → ER 13:02 → MICUSO 15:12 → EDBEDREQSVC 15:29 → EDBEDREQ 15:29 → SUPCPDRO 15:52 → MICUSO 10-03 04:32 → MICUNO 10-11 11:30 → 7WST 10-11 23:30 → MICUNO 10-12 11:12 → 7WST 10-13 17:03 → 8WST 10-15 14:51 → 5EST 10-24 02:20
PROVIDERS: ADMIT Internal Medicine; ATTEND Internal Medicine
PROC: 5A09357 Assistance with Respiratory Ventilation, Less than 24 Consecutive Hours, Continuous Positive Airway Pressure (ICD-10-PCS; 2021-10-02)
PROC: 5A09357 Assistance with Respiratory Ventilation, Less than 24 Consecutive Hours, Continuous Positive Airway Pressure (ICD-10-PCS; 2021-10-03)
PROC: 02HV33Z Insertion of Infusion Device into Superior Vena Cava, Percutaneous Approach (ICD-10-PCS; principal; 2021-10-04)
PROC: B548ZZA Ultrasonography of Superior Vena Cava, Guidance (ICD-10-PCS; 2021-10-04)
PROC: 5A09357 Assistance with Respiratory Ventilation, Less than 24 Consecutive Hours, Continuous Positive Airway Pressure (ICD-10-PCS; 2021-10-04)
PROC: 5A09457 Assistance with Respiratory Ventilation, 24-96 Consecutive Hours, Continuous Positive Airway Pressure (ICD-10-PCS; 2021-10-05)
PROC: 5A0935A Assistance with Respiratory Ventilation, Less than 24 Consecutive Hours, High Flow/Velocity Cannula (ICD-10-PCS; 2021-10-08)
PROC: 5A09357 Assistance with Respiratory Ventilation, Less than 24 Consecutive Hours, Continuous Positive Airway Pressure (ICD-10-PCS; 2021-10-23)
PROC: 5A09457 Assistance with Respiratory Ventilation, 24-96 Consecutive Hours, Continuous Positive Airway Pressure (ICD-10-PCS; 2021-10-24)
DX: A41.89 Other specified sepsis (principal); I21.4 Non-ST elevation (NSTEMI) myocardial infarction; J12.82 Pneumonia due to coronavirus disease 2019; J96.01 Acute respiratory failure with hypoxia; U07.1 COVID-19; I62.01 Nontraumatic acute subdural hemorrhage; I50.43 Acute on chronic combined systolic (congestive) and diastolic (congestive) heart failure; N17.9 Acute kidney failure, unspecified; E87.0 Hyperosmolality and hypernatremia; G93.40 Encephalopathy, unspecified; E46 Unspecified protein-calorie malnutrition; D53.9 Nutritional anemia, unspecified; R13.12 Dysphagia, oropharyngeal phase; I48.91 Unspecified atrial fibrillation; I45.10 Unspecified right bundle-branch block; D75.89 Other specified diseases of blood and blood-forming organs; I71.2 Thoracic aortic aneurysm, without rupture; Z66 Do not resuscitate; R74.01 Elevation of levels of liver transaminase levels; Z78.1 Physical restraint status; Z51.5 Encounter for palliative care; Z78.9 Other specified health status; Z68.22 Body mass index [BMI] 22.0-22.9, adult; I11.0 Hypertensive heart disease with heart failure; R31.9 Hematuria, unspecified; E11.65 Type 2 diabetes mellitus with hyperglycemia
CPT/HCPCS: 36415; 36600; 71045; 71250; 76700; 76937; 78580; 80048; 80053; 80061; 80076; 80202; 81003; 82248; 82375; 82550; 82553; 82728; 82805; 82962; 83605; 83735; 83880; 84145; 84484; 85025; 85384; 86140; 86705; 86709; 86803; 86850; 86900; 87077; 87186; 87340; 87426; 92610; 93005; 93306; 93970; 94640; 94660; 99291; A6261; C1725; C9803; J0282; J0692; J1100; J1160; J1200; J1650; J1815; J1940; J1953; J2060; J2185; J2270; J2543; J3370; J3480; J3490; J7040; J7042; J7050; J7060; J7070; U0003; U0005; A4315